=== PATIENT | male | born 1975 | race Caucasian/White ===

== ENCOUNTER → 2017-07-21 07:46 | Outpatient (CLI) | payer OTHER, SELFPAY ==
--- NOTE | 2017-07-21 07:46 | DT_ITS ---
This patient was seen during an EMR downtime July 17, 2017 - July 24, 2017. This patient may have a combination of paper and electronic documentation or all paper documentation. All documentation is viewable within the e-chart portion of [facility] for each patient visit.
[2017-07-21 14:55] LABS: Cholesterol 187 mg/dL (200); High Density Lipoprotein 7 mg/dL; Triglycerides 400 mg/dL; Very Low Density Lipoprotein 80 mg/dL (5-40)
== END ==
PROVIDERS: Family Provider Family Medicine; PCP Family Medicine; Visit Provider Family Medicine
DX: E78.5 Hyperlipidemia, unspecified (principal)
CPT/HCPCS: 36415; 80061

== ENCOUNTER → 2017-12-08 07:39 | Outpatient (CLI) | payer OTHER, SELFPAY ==
[2017-12-08 10:32] LABS: Absolute Neutrophil Count 2.7 X10^3/uL (2.0-7.7); Basophil# 0.03 X10^3/uL; Basophil% 0.6 % (0-1); Eosinophil# 0.09 X10^3/uL; Eosinophils% 1.7 % (0-5); Hematocrit 47.8 % (40-54); Hemoglobin 16.4 g/dl (13.0-16.5); Lymphocyte % 38.6 % (19-41); Mean Corp Hgb Conc 34.3 g/gl (32-36); Mean Corpuscular Volume 87.5 fL (80-94); Mean Platelet Vol. 10.9 fl (6.2-12.0); Monocyte# 0.35 X10^3/uL; Monocyte% 6.8 % (0-10); Neutrophil % 52.1 % (47-70); Platelet Count 321 K/mm3 (150-450); RBC Distribution Width CV 14.8 % (11.6-14.6); RBC Distribution Width SD 47.1 fl (35.1-43.9); Red Blood Count 5.46 M/mm3 (4.6-6.2); White Blood Count 5.2 K/mm3 (4.4-11.0)
[2017-12-08 10:35] LABS: POSITIVE COUNT NO; POSITIVE DIFFERENTIAL NO; POSITIVE MORPHOLOGY NO
[2017-12-08 10:51] LABS: ALB/GLOB Ratio 0.9 RATIO (0.9-2.4); AST(SGOT) 43 U/L (15-37); Alanine Aminotransfer ALT/SGPT 95 U/L (16-61); Albumin, Serum 3.6 g/dL (3.2-5.0); Alkaline Phosphatase 58 U/L (45-117); Anion Gap 6 (5-15); BUN 12 mg/dL (7-18); BUN/Creat Ratio 9.9 RATIO (10-20); Calcium,Total 8.6 mg/dL (8.5-10.1); Chloride 102 mmol/L (98-107); Cholesterol 170 mg/dL (200); Creatinine, Serum 1.21 mg/dL (0.70-1.30); EST Glomerular Filtration Rate 69 mL/min (>60); Est Glom Filt Rate - Afr Amer 84 mL/min (>60); Globulin 3.8 g/dL (2.2-4.2); Glucose 83 mg/dL (74-106); High Density Lipoprotein 6 mg/dL; Potassium 4.3 mmol/L (3.5-5.1); Protein, Total 7.4 g/dL (6.4-8.2); Sodium Level 139 mmol/L (136-145); Triglycerides 237 mg/dL; Very Low Density Lipoprotein 47 mg/dL (5-40)
[2017-12-08 10:55] LABS: Microalbumin,Random Urine 19.2 mg/L (NO RANGE EST.); Microalbumin:Creatinine Ratio 6.4 mg/g CRE (<30 mg/g CRE)
== END ==
PROVIDERS: Family Provider Family Medicine; PCP Family Medicine; Referring Provider Family Medicine; Visit Provider Family Medicine
DX: I10 Essential (primary) hypertension (principal); G47.33 Obstructive sleep apnea (adult) (pediatric); D84.1 Defects in the complement system; E78.5 Hyperlipidemia, unspecified; E66.9 Obesity, unspecified
CPT/HCPCS: 36415; 80053; 80061; 82043; 82570; 85025

== ENCOUNTER → 2018-03-19 07:39 | Outpatient (CLI) | payer OTHER, SELFPAY ==
[2018-03-23 16:50] LABS: C1 EST Inhibitor, Functional 56 (.); C1 Esterase Inhibitor, Quant 7 mg/dL (21-39)
== END ==
PROVIDERS: Family Provider Family Medicine; PCP Family Medicine; Referring Provider Family Medicine; Visit Provider Family Medicine
DX: D84.1 Defects in the complement system (principal)
CPT/HCPCS: 36415; 86160; 86161

== ENCOUNTER → 2018-05-14 07:11 | Outpatient (CLI) | payer OTHER, SELFPAY ==
[2018-05-14 10:01] LABS: Absolute Lymphocyte Count 2.63 X10^3/ul (0.83-4.51); Absolute Neutrophil Count 4.5 X10^3/uL (2.0-7.7); Basophil# 0.04 X10^3/uL; Basophil% 0.5 % (0-1); Eosinophil# 0.14 X10^3/uL; Eosinophils% 1.8 % (0-5); Hematocrit 46.7 % (40-54); Hemoglobin 15.5 g/dl (13.0-16.5); Lymphocyte # 2.63 X10^3/ul (4.0); Lymphocyte % 33.2 % (19-41); Mean Corp Hgb Conc 33.2 g/gl (32-36); Mean Corpuscular Hgb 29.8 pg (27.0-32.0); Mean Corpuscular Volume 89.8 fL (80-94); Mean Platelet Vol. 10.4 fl (6.2-12.0); Monocyte# 0.62 X10^3/uL; Monocyte% 7.8 % (0-10); Neutrophil # 4.49 X10^3/uL (2.7-7.7); Neutrophil % 56.6 % (47-70); Platelet Count 289 K/mm3 (150-450); RBC Distribution Width SD 46.1 fl (35.1-43.9); White Blood Count 7.9 K/mm3 (4.4-11.0)
[2018-05-14 10:04] LABS: POSITIVE COUNT NO; POSITIVE DIFFERENTIAL NO; POSITIVE MORPHOLOGY NO
[2018-05-14 10:30] LABS: AST(SGOT) 21 U/L (15-37); Alanine Aminotransfer ALT/SGPT 40 U/L (16-61); Albumin, Serum 3.5 g/dL (3.2-5.0); Alkaline Phosphatase 69 U/L (45-117); Anion Gap 7 (5-15); BUN 11 mg/dL (7-18); BUN/Creat Ratio 10.7 RATIO (10-20); Calcium,Total 8.5 mg/dL (8.5-10.1); Chloride 107 mmol/L (98-107); Cholesterol 130 mg/dL (200); Creatinine, Serum 1.03 mg/dL (0.70-1.30); EST Glomerular Filtration Rate 83 mL/min (>60); Est Glom Filt Rate - Afr Amer 101 mL/min (>60); Globulin 3.4 g/dL (2.2-4.2); Glucose 92 mg/dL (74-106); High Density Lipoprotein 7 mg/dL; Protein, Total 6.9 g/dL (6.4-8.2); Sodium Level 142 mmol/L (136-145); Triglycerides 364 mg/dL; Very Low Density Lipoprotein 73 mg/dL (5-40)
[2018-05-18 13:49] LABS: Testosterone, Free 22.99 ng/dL (5.00-21.00)
[2018-05-18 14:54] LABS: Testosterone, % Free 6.18 % (1.50-4.20); Testosterone, Total 372 ng/dL (264-916)
== END ==
PROVIDERS: Family Provider Family Medicine; PCP Family Medicine; Referring Provider Family Medicine; Visit Provider Family Medicine
DX: I10 Essential (primary) hypertension (principal); E78.5 Hyperlipidemia, unspecified; N52.9 Male erectile dysfunction, unspecified; Z51.81 Encounter for therapeutic drug level monitoring
CPT/HCPCS: 36415; 80053; 80061; 84402; 84403; 85025

== ENCOUNTER → 2020-07-09 07:08 | Outpatient (CLI) | payer OTHER, SELFPAY ==
[2020-07-09 10:08] LABS: Absolute Lymphocyte Count 1.88 X10^3/uL (0.83-4.51); Basophil# 0.05 X10^3/uL; Basophil% 0.9 % (0-1); Eosinophil# 0.09 X10^3/uL; Eosinophils% 1.7 % (0-5); Hematocrit 47.4 % (40-54); Hemoglobin 15.4 g/dL (13.0-16.5); Lymphocyte # 1.88 X10^3/ul (0.83-4.51); Lymphocyte % 34.8 % (19-41); Mean Corp Hgb Conc 32.5 g/dL (32-36); Mean Corpuscular Hgb 28.9 pg (27.0-32.0); Mean Corpuscular Volume 89.1 fL (80-94); Mean Platelet Vol. 10.3 fl (6.2-12.0); Monocyte# 0.42 X10^3/uL; Monocyte% 7.8 % (0-10); NRBC Flagged by Analyzer 0 % (0-5); Neutrophil # 2.95 X10^3/uL (2.7-7.7); Neutrophil % 54.4 % (47-70); Platelet Count 397 K/mm3 (150-450); RBC Distribution Width CV 15.5 % (11.6-14.6); RBC Distribution Width SD 50.6 fl (35.1-43.9); Red Blood Count 5.32 M/mm3 (4.6-6.2); White Blood Count 5.4 K/mm3 (4.4-11.0)
[2020-07-09 10:48] LABS: ALB/GLOB Ratio 0.9 RATIO (0.9-2.4); AST(SGOT) 25 U/L (15-37); Alanine Aminotransfer ALT/SGPT 53 U/L (16-61); Albumin, Serum 3.3 g/dL (3.2-5.0); Alkaline Phosphatase 59 U/L (45-117); Anion Gap 7 (5-15); BUN 14 mg/dL (7-18); BUN/Creat Ratio 12.7 RATIO (10-20); Calcium,Total 8.9 mg/dL (8.5-10.1); Chloride 104 mmol/L (98-107); Cholesterol 149 mg/dL (200); EST Glomerular Filtration Rate 77 mL/min (>60); Est Glom Filt Rate - Afr Amer 93 mL/min (>60); Globulin 3.7 g/dL (2.2-4.2); Glucose 93 mg/dL (74-106); High Density Lipoprotein 8 mg/dL; Potassium 4.4 mmol/L (3.5-5.1); Sodium Level 138 mmol/L (136-145); Triglycerides 263 mg/dL; Very Low Density Lipoprotein 53 mg/dL (5-40)
== END ==
PROVIDERS: PCP Family Medicine; Referring Provider Family Medicine; Visit Provider Family Medicine
DX: Z00.00 Encounter for general adult medical examination without abnormal findings (principal)
CPT/HCPCS: 36415; 80053; 80061; 85025

== ENCOUNTER → 2021-12-17 | Outpatient (CLI) | payer OTHER, SELFPAY ==
[2021-12-17 17:52] LABS: Absolute Neutrophil Count 3.2 X10^3/uL (2.0-7.7); Basophil# 0.06 X10^3/uL; Eosinophil# 0.11 X10^3/uL; Eosinophils% 1.8 % (0-5); Hematocrit 50.2 % (40-54); Hemoglobin 16.9 g/dL (13.0-16.5); Lymphocyte % 37.2 % (19-41); Mean Corp Hgb Conc 33.7 g/dL (32-36); Mean Corpuscular Hgb 30.4 pg (27.0-32.0); Mean Corpuscular Volume 90.3 fL (80-94); Mean Platelet Vol. 9.9 fl (6.2-12.0); Monocyte# 0.53 X10^3/uL; Monocyte% 8.6 % (0-10); NRBC Flagged by Analyzer 0 % (0-5); Neutrophil # 3.17 X10^3/uL (2.7-7.7); Neutrophil % 51.1 % (47-70); Platelet Count 367 K/mm3 (150-450); RBC Distribution Width CV 14.5 % (11.6-14.6); RBC Distribution Width SD 47.7 fl (35.1-43.9); Red Blood Count 5.56 M/mm3 (4.6-6.2); White Blood Count 6.2 K/mm3 (4.4-11.0)
[2021-12-17 18:52] LABS: BUN 9 mg/dL (7-18); Creatinine, Serum 1.13 mg/dL (0.70-1.30); EST Glomerular Filtration Rate 74 mL/min (>60); Est Glom Filt Rate - Afr Amer 89 mL/min (>60); Glucose 89 mg/dL (74-106); Protein, Total 7.2 g/dL (6.4-8.2)
[2021-12-17 18:53] LABS: AST(SGOT) 38 U/L (15-37); Alanine Aminotransfer ALT/SGPT 89 U/L (16-61); Albumin, Serum 3.6 g/dL (3.2-5.0); Alkaline Phosphatase 62 U/L (45-117); Anion Gap 8 (5-15); Calcium,Total 9.3 mg/dL (8.5-10.1); Chloride 100 mmol/L (98-107); Cholesterol 151 mg/dL (200); Globulin 3.6 g/dL (2.2-4.2); High Density Lipoprotein 5 mg/dL; Potassium 4.2 mmol/L (3.5-5.1); Sodium Level 136 mmol/L (136-145); Triglycerides 485 mg/dL
== END | disposition home or self-care (01) ==
LOC: BFHLAB 14:47
PROVIDERS: PCP Family Medicine; Visit Provider Family Medicine
DX: Z00.00 Encounter for general adult medical examination without abnormal findings (principal)
CPT/HCPCS: 36415; 80053; 80061; 85025

== ENCOUNTER 2022-02-22 08:50 | Emergency (ER) | payer OTHER, SELFPAY ==
[2022-02-22 08:52] VITALS: BP 192/100; PULSE 74; RESP 11; TEMP 36.2; O2SAT 100
--- NOTE | 2022-02-22 09:18 | RAD_ITS ---
STUDY: X-RAY CHEST REASON FOR EXAM: Male, 46 years old. Sternal chest pain. TECHNIQUE: PA and lateral views of the chest. COMPARISON: Comparison is made with prior study dated 08/27/2013. FINDINGS: EKG electrodes are seen. Hyperinflation. The lungs are clear. There is no demonstrated pleural abnormality. Normal size heart. Normal mediastinum and cesar. Normal visualized pulmonary arteries. Normal visualized aortic arch and descending thoracic aorta. Normal visualized thoracic spine. Deformity of the mid right clavicle suggestive of a healed fracture. There is no demonstrated abnormality of the visualized soft tissue structures of the upper abdomen. RAD/Chest PA and Lateral IMPRESSION: Hyperinflation. The lungs are clear. Electronically Signed: Ajay Patterson MD at 10:19 EST ,
--- NOTE | 2022-02-22 09:20 | ED.VIS.CHEST ---
HPI History of Present Illness Chief Complaint: Chest Pain Informant: patient Narrative Narrative: Patient is a 46-year-old male with history of GERD secondary to hiatal hernia, hyperlipidemia, hypertension and hereditary angioedema presenting with chest discomfort. Patient states for the past 4 to 5 days he has had tightness and discomfort in the upper part of his chest. He states it has been constant but fluctuates in intensity. It moves around from the center of his chest to the left and the right. Does not feel short of breath. Has a slight cough that is been productive of phlegm. Denies any worsening of the pain with deep inspiration. Denies any fever or chills. Denies any URI symptoms. Notes he has been clearing his throat more often but has been going on for a longer amount of time. Denies any swelling of his legs. Denies a history of DVT or PE. Notes he did take his blood pressure medication this morning (hydrochlorothiazide he believes). Last episode of hereditary angioedema was over 10 years ago and he is well maintained on danazol. [facility] Medical History Hypercholesteremia Hypertension Home Medications danazol 200 mg capsule 200 mg PO BID 08/27/13 [History Last Taken 06/17/16 06:00] multivitamin with folic acid 400 mcg tablet (Thera) 1 tab PO DAILY 09/23/13 [History Last Taken Unknown] omega-3 fatty acids-fish oil 340 mg-1,000 mg capsule (Fish Oil) 1 ea PO DAILY 09/23/13 [History Last Taken Unknown] atorvastatin 20 mg tablet (Lipitor) 20 mg PO DAILY 06/13/16 [History Last Taken Unknown] omeprazole magnesium 20 mg tablet,delayed release (Prilosec OTC) 20 mg PO QHS 06/13/16 [History Last Taken Unknown] albuterol sulfate 90 mcg/actuation aerosol inhaler (Ventolin HFA) 1 - 2 puff inhalation Q4H PRN PRN Wheezing or SOB #1 inh 02/22/22 [Rx Last Taken Unknown] prednisone 20 mg tablet 40 mg PO DAILY #10 tabs 02/22/22 [Rx Last Taken Unknown] Allergy/AdvReac Type Severity Reaction Status Date / Time No Known Allergies Allergy Verified 02/22/22 08:52 Family History no significant family his Surgical History no surgical history Social History Smoking Status: Never smoker ROS ROS ED Constitutional Constitutional ED: Denies chills or fever(s) ENT ENT ED: Denies ear pain, rhinorrhea or sore throat Cardiovascular Cardiovascular: Reports as per HPI and chest pain; Denies palpitations Respiratory/Chest Respiratory/Chest: Denies cough, dyspnea or dyspnea on exertion Gastrointestinal Gastrointestinal: Denies abdominal pain, nausea or vomiting Musculoskeletal Musculoskeletal: Denies arthralgias or myalgias Integumentary Denies rash Neurologic Neurologic: Denies headache(s) or weakness Hematologic/Lymphatic Hematologic/Lymphatic: Denies easy bleeding or easy bruising EXAM Physical Exam Const Vital Signs: 02/22/22 08:52 Temperature 97.2 F L Temperature Source Temporal Pulse Rate 74 Respiratory Rate 11 L Blood Pressure 192/100 H Blood Pressure Mean 130 Pulse Ox 100 Oxygen Delivery Method Room Air Positive well nourished and well developed General Appearance ED: well developed and NAD HEENT Reports TM's clear and moist mucous membranes HEENT Narrative: Normal oropharynx, no edema appreciated. Uvula is midline. normocephalic and atraumatic Tympanic Membrane ED: Yes TM's clear Eyes PERRL and EOMs intact bilaterally Neck supple and no JVD Chest Wall inspection of chest normal and palpation of chest normal Resp normal respiratory effort and clear to auscultation bilaterally Cardio regular rate and regular rhythm Peripheral Pulses: radial pulses present GI normal to inspection, nondistended, normoactive bowel sounds Extremity normal to inspection General Extremety ED: Negative for edema General Extremity: Negative for edema Neuro oriented x3 Sensorium / Orientation: awake Motor Exam: Negative for general weakness Psych mental status grossly normal Skin no rashes or lesions noted Heart Score History: Slightly/Non-Suspicious ECG: Normal Age: >45 - <65 years Risk Factors: 1 or 2 Risk Factors Troponin: </= Normal Limit Score: 2 MDM MDM MDM Narrative Medical decision making narrative: Patient evaluated for vague sensation of discomfort in his chest. He appears nontoxic and in no acute distress. He has had a mild cough with some slight phlegm production. Vital signs are significant for hypertension. Patient does have a history of hypertension and is on hydrochlorothiazide for this. He did take it this morning. He is given aspirin in the ER. Physical exam is large unremarkable including no wheezing, rales or diminished breath sounds. Does not have an obvious viral syndrome on exam. This is been going on for almost 5 days and they do not sound cardiac. He does not have have any ischemic EKG changes and within normal high since he troponin I do not think further cardiac evaluation to look for signs of ACS is indicated. He is low risk for PE and D-dimer is normal at 0.28. I do not think a CT is indicated. Chest x-ray interpreted by myself as well as radiology does not show any acute infiltrate but does show some hyperinflation. I do not appreciate any wheezing I will place the patient on prednisone burst as well as give him a rescue inhaler. Encouraged follow-up with his primary care doctor. Patient's blood pressure improved while in the ER and at time of disposition is now 150/100 systolic. Patient states this is about where his blood pressure runs. He is encouraged to continue taking his blood pressure medicine and follow-up with his primary care doctor for further blood pressure checks. I do not think new blood pressure medication is indicated at this time. He is agreeable with this. He does not know of any underlying history of any type of reactive or obstructive airway disease including asthma or COPD. I do not see any signs of pneumonia and he does not have a fever or leukocytosis I do not think antibiotics indicated. Patient given return precautions. Discharged home in stable condition. Lab Data Attestation: I reviewed the patient's lab results. Labs: Laboratory Results - last 24 hr 02/22/22 02/22/22 02/22/22 09:00 09:00 09:00 WBC 6.1 RBC 5.77 Hgb 17.3 H Hct 50.8 MCV 88.0 MCH 30.0 MCHC 34.1 RDW Std Deviation 44.7 H RDW Coeff of Carole 13.9 Plt Count 401 MPV 10.2 Immature Gran % (Auto) 0.300 Neut % (Auto) 54.0 Lymph % (Auto) 37.0 [place] % (Auto) 7.0 Eos % (Auto) 1.0 Baso % (Auto) 0.7 Absolute Neuts (auto) 3.3 Absolute Lymphs (auto) 2.26 Nucleated RBC % 0 D-Dimer Quant (PE/DVT) 0.28 Sodium 137 Potassium 3.6 Chloride 98 Carbon Dioxide 30.0 Anion Gap 9 BUN 10 Creatinine 1.26 Estim Creat Clear Calc 6.15 Est GFR (MDRD) Af Amer 79 Est GFR (MDRD) Non-Af 65 BUN/Creatinine Ratio 7.9 L Glucose 132 H Calcium 9.7 Troponin I High Sens 6 Radiography Diagnostic Testing: Clinical Impression(s) from Imaging Studies Chest X-Ray 02/22/22 09:18 IMPRESSION: Hyperinflation. The lungs are clear. Electronically Signed: Ajay Patterson MD at 10:19 EST , Rhythm Strip Rhythm Strip: Sinus Rhythm Rate: 71 Ectopy: None EKG Initial EKG: Attestation: I personally reviewed and interpreted this EKG as follows: Interpretation: Sinus Rhythm Comments: Normal sinus rhythm at a rate of 71 bpm Normal axis Normal intervals Normal ST segments No prior EKG available for comparison at this time Discharge Plan Triage Chief Complaint: Chest Pain ED Provider: Winsome Brian Dx/Rx/DC Orders Clinical Impression: Sensation of chest tightness, Hyperinflation of lungs, Hypertension Instructions: ED Chest Pain, Noncardiac Prescriptions: New prednisone 20 mg tablet 40 mg PO DAILY Qty: 10 0RF albuterol sulfate [Ventolin HFA] 90 mcg/actuation HFA aerosol inhaler 1 - 2 puff inhalation Q4H PRN PRN (Reason: Wheezing or SOB) Qty: 1 0RF No Action danazol 200 MG capsule 200 mg PO BID Label Comments: TAKE ONE CAPSULE TWICE A DAY omega-3 fatty acids-fish oil [Fish Oil] 1 EACH capsule 1 ea PO DAILY multivitamin with folic acid [Thera] 1 TABLET tablet 1 tab PO DAILY atorvastatin [Lipitor] 20 MG tablet 20 mg PO DAILY omeprazole magnesium [Prilosec OTC] 20 MG tablet,delayed release (DR/EC) 20 mg PO QHS Primary Care Provider: Ortiz Merino Referrals: Ortiz Mernio DO [Primary Care Provider] - Activity Restrictions/Additional Instructions: The exact cause of your chest discomfort is not clear however your lungs do show some hyperinflation. We will put you on some steroids as well as an inhaler. Please follow-up with your primary care doctor. Check your blood pressure once or twice a day at home and follow-up with your primary care doctor for blood pressure check to see if you need any medication adjustments. Return with worsening symptoms. Disposition Disposition: Home, Self Care
[2022-02-22 09:29] LABS: Absolute Lymphocyte Count 2.26 X10^3/uL (0.83-4.51); Absolute Neutrophil Count 3.3 X10^3/uL (2.0-7.7); Basophil# 0.04 X10^3/uL; Basophil% 0.7 % (0-1); Eosinophil# 0.06 X10^3/uL; Hematocrit 50.8 % (40-54); Hemoglobin 17.3 g/dL (13.0-16.5); Lymphocyte # 2.26 X10^3/ul (0.83-4.51); Mean Corp Hgb Conc 34.1 g/dL (32-36); Mean Platelet Vol. 10.2 fl (6.2-12.0); Monocyte# 0.43 X10^3/uL; NRBC Flagged by Analyzer 0 % (0-5); Platelet Count 401 K/mm3 (150-450); RBC Distribution Width CV 13.9 % (11.6-14.6); RBC Distribution Width SD 44.7 fl (35.1-43.9); Red Blood Count 5.77 M/mm3 (4.6-6.2); White Blood Count 6.1 K/mm3 (4.4-11.0)
[2022-02-22 09:40] LABS: D-Dimer Quantitative (DVT/PE) 0.28 FEU/ug/m (0.27-0.49)
[2022-02-22] MEDS: Aspirin 325 MG Tablet PO (09:43)
[2022-02-22 09:46] LABS: Anion Gap 9 (5-15); BUN 10 mg/dL (7-18); BUN/Creat Ratio 7.9 RATIO (10-20); Calcium,Total 9.7 mg/dL (8.5-10.1); Chloride 98 mmol/L (98-107); Creatinine, Serum 1.26 mg/dL (0.70-1.30); EST Glomerular Filtration Rate 65 mL/min (>60); Est Glom Filt Rate - Afr Amer 79 mL/min (>60); Estimated Creatinine Clearance 6.15 ml/min; Glucose 132 mg/dL (74-106); Potassium 3.6 mmol/L (3.5-5.1); Sodium Level 137 mmol/L (136-145); Troponin-I HS 6 pg/mL (3.0-78.0)
[2022-02-22 11:31] VITALS: BP 151/93; PULSE 78; RESP 16; O2SAT 97
== END 2022-02-22 11:32 | disposition home or self-care (01) ==
PROVIDERS: Emergency Provider Emergency Medicine; PCP Family Medicine; Visit Provider Emergency Medicine
DX: R07.9 Chest pain, unspecified (principal); I10 Essential (primary) hypertension
CPT/HCPCS: 71046; 80048; 84484; 85025; 85379; 93005; 99283

== ENCOUNTER → 2022-03-07 | Outpatient (CLI) | payer OTHER, SELFPAY ==
--- NOTE | 2022-03-09 11:15 | PFT ---
INTRODUCTION: The patient is a 46-year-old male that presents for pulmonary function studies secondary to a diagnosis of dyspnea. Respiratory therapy reported good patient effort. Bronchodilators were used during testing. INTERPRETATION: Forced expiration spirometry demonstrates no evidence of a large airways obstructive ventilatory defect. There was no significant response to aerosolized bronchodilators. Spirograms are of good quality and plateau normally. The respiratory flow volume loop was normal. Body plethysmography was performed and revealed evidence of hyperinflation. Diffusing capacity by single breath CO was within normal limits. IMPRESSION: Normal spirometry without significant bronchodilator response. There was a mild degree of hyperinflation noted on lung volumes.
== END | disposition home or self-care (01) ==
PROVIDERS: PCP Family Medicine; Referring Provider Family Medicine; Visit Provider Family Medicine
DX: R06.00 Dyspnea, unspecified (principal)
CPT/HCPCS: 94060; 94726; 94729

== ENCOUNTER → 2022-04-18 | Outpatient (CLI) | payer OTHER, SELFPAY ==
[2022-04-18 13:47] LABS: AST(SGOT) 31 U/L (15-37); Alanine Aminotransfer ALT/SGPT 53 U/L (16-61); Albumin, Serum 3.4 g/dL (3.2-5.0); Alkaline Phosphatase 50 U/L (45-117); Cholesterol 150 mg/dL (200); Globulin 3.9 g/dL (2.2-4.2); High Density Lipoprotein 6 mg/dL; Protein, Total 7.3 g/dL (6.4-8.2); Triglycerides 501 mg/dL
[2022-04-19 15:25] LABS: LDL, Direct 120295 83 mg/dL (0-99)
== END | disposition home or self-care (01) ==
LOC: BFHLAB 10:44
PROVIDERS: PCP Family Medicine; Visit Provider Family Medicine
DX: Z00.00 Encounter for general adult medical examination without abnormal findings (principal); E78.5 Hyperlipidemia, unspecified
CPT/HCPCS: 36415; 80061; 80076; 83721

== ENCOUNTER → 2023-04-20 | Outpatient (CLI) | payer OTHER, SELFPAY ==
[2023-04-20 12:03] LABS: Absolute Lymphocyte Count 2.15 X10^3/uL (0.83-4.51); Absolute Neutrophil Count 3.3 X10^3/uL (2.0-7.7); Basophil# 0.05 X10^3/uL; Basophil% 0.8 % (0-1); Eosinophil# 0.08 X10^3/uL; Eosinophils% 1.3 % (0-5); Hematocrit 50.4 % (40-54); Hemoglobin 16.7 g/dL (13.0-16.5); Lymphocyte # 2.15 X10^3/ul (0.83-4.51); Mean Corp Hgb Conc 33.1 g/dL (32-36); Mean Corpuscular Hgb 30.2 pg (27.0-32.0); Mean Corpuscular Volume 91.1 fL (80-94); Mean Platelet Vol. 10.6 fl (6.2-12.0); Monocyte% 6.7 % (0-10); NRBC Flagged by Analyzer 0 % (0-5); Neutrophil # 3.27 X10^3/uL (2.7-7.7); Neutrophil % 54.7 % (47-70); Platelet Count 367 K/mm3 (150-450); RBC Distribution Width CV 14.6 % (11.6-14.6); RBC Distribution Width SD 49.1 fl (35.1-43.9); Red Blood Count 5.53 M/mm3 (4.6-6.2)
[2023-04-20 13:17] LABS: AST(SGOT) 50 U/L (15-37); Alanine Aminotransfer ALT/SGPT 92 U/L (16-61); Albumin, Serum 3.6 g/dL (3.2-5.0); Alkaline Phosphatase 42 U/L (45-117); Anion Gap 11 (5-15); BUN 11 mg/dL (7-18); Calcium,Total 10.4 mg/dL (8.5-10.1); Chloride 98 mmol/L (98-107); Cholesterol 173 mg/dL (200); EST Glomerular Filtration Rate 76 mL/min (>60); Est Glom Filt Rate - Afr Amer 92 mL/min (>60); Globulin 3.7 g/dL (2.2-4.2); Glucose 109 mg/dL (74-106); High Density Lipoprotein 8 mg/dL; Protein, Total 7.3 g/dL (6.4-8.2); Sodium Level 136 mmol/L (136-145); Triglycerides 578 mg/dL
[2023-04-20 14:11] LABS: Hemoglobin A1c 5.4 % (3.8-5.6)
== END | disposition home or self-care (01) ==
LOC: BFHLAB 09:00
PROVIDERS: PCP Family Medicine; Referring Provider Family Medicine; Visit Provider Family Medicine
DX: Z00.00 Encounter for general adult medical examination without abnormal findings (principal)
CPT/HCPCS: 36415; 80053; 80061; 83036; 85025

== ENCOUNTER 2024-05-24 06:29 | Day surgery (SDC) | payer OTHER, SELFPAY ==
[2024-05-24] VITALS (8 sets, daily range): BP systolic 88–148; BP diastolic 68–95; PULSE 61–72; RESP 12–18; TEMP 36.2–36.6; O2SAT 92–100; BMI 31.4
--- NOTE | 2024-05-24 06:49 | PCM.HP.BLA ---
History and Physical Date of Admission: 05/24/24 ADDENDUM by Navya Redding on 05/03/24 at 1345 Intake Allergies No Known Allergies Allergy (Verified 05/03/24 13:43) Assessment and Plan Assessment and Plan (1) Screen for colon cancer: Status: Acute (2) Umbilical hernia: Status: Acute Qualifiers: Obstruction and gangrene presence: without obstruction or gangrene Qualified Code(s): K42.9 - Umbilical hernia without obstruction or gangrene Orders: Orders Colonoscopy Today Dr. Nicolas Nielson MD Medications: Discontinued prednisone Discontinued Reason: Pt no longer taking 40 mg (2 x 20 mg) PO DAILY 10 tabs 0RF Navya Redding 05/03/24 1358 <Electronically signed by Nicolas Nielson MD> Date Nicolas Nielson MD cc: Dr. Ortiz Merino DO ~* Signed Intake Vital Signs 02/22/2307:52 05/03/2512:34 Height 5 ft 9 in Weight: 215 lb BP 142/98 H Blood Pressure Location Rt brachial Position Sitting Respiration 17 Pulse 61 Pulse Source Monitor Pulse Oximetry (%) 92 Oxygen Delivery Method room air Intake Visit Reasons: hernia/c-scope Allergies No Known Allergies Allergy (Verified 02/22/22 08:52) PFSH Medical History Hypercholesteremia Hypertension Family History no significant family his Social History Smoking Status: Never smoker HPI HPI HPI: Patient is a 48-year-old male here for umbilical hernia as well as for colonoscopy. He has an umbilical hernia that has been there for years. He reports is not bothering him unless something hits it. Other than that he reports no problems with the hernia. As far as colonoscopy he reports he has never had a screening colonoscopy. He reports no abdominal pain or blood in the stool and his only family history of colon cancer is a grandfather. ROS General General: No weight change, appetite, fatigue, colon cancer, breast cancer or weakness HEENT HEENT: No difficulty swallowing, eye injury, eye surgery, swollen glands or hoarseness Endo Endocrine: No thyroid disease, diabetes mellitus, thyroid cancer, Hair loss, heat intolerance or cold intolerance Skin Skin: No rash or changing moles Musc Musculoskeletal: No back problems, arthritis, rheumatoid arthritis, gout or joint pain Cardio Cardiovascular: Yes high blood pressure; No murmur, pacemaker, heart disease, atrial fibrillation, heart attack, heart stent, palpitations, shortness of breath with exertion or chest pain Psych Psychiatric: No depression, anxiety or hearing voices Resp Respiratory: No shortness of breath, Yes sleep apnea, No cough, No COPD, No asthma, No emphysema and No wheezing Gastro Gastrointestinal: No abdominal pain, No nausea or vomiting, No diarrhea, No constipation, No blood in stool, Yes acid reflux, No hemorrhoids, No ulcers, No gallbladder problem and No black,tarry stools Juan Antonio Hematologic: No blood thinners, No blood disorders, No bleeding, No anemia and No blood clots Neuro Neurologic: No system reviewed and no additional complaints, except as documented, No as per HPI, No abnormal gait, No abnormal hearing, No abnormal movements, No abnormal speech, No behavioral changes, No burning sensations, No confusion, No convulsions, No disequilibrium, No dizziness, No localized weakness, No frequent falls, No headache(s), No lack of coordination, No loss of vision, No memory loss, No numbness, No other visual disturbances, No radicular pain, No restless legs, No sensory deficit, No syncope, No tingling, No tremor(s), No weakness and No other Exam Const General: cooperative Orientation: alert and oriented x3 HENNE Head: normal to inspection Neck Neck: normal visual inspection and full ROM Chest Chest palpation & inspection: normal inspection of the chest Resp Effort & Inspection: normal respiratory effort Auscultation: clear to auscultation bilaterally Cardio Rate: regular rate Rhythm: regular rhythm GI Inspection: non-distended Palpation: soft and nontender Skin General: no rashes or lesions noted Neuro General: patient alert and patient oriented x3 Extrem General: full ROM Psych Appearance: grossly normal Mental Status: mental status grossly normal Assessment and Plan Assessment and Plan (1) Screen for colon cancer: Status: Acute Plan: Patient is due for screening colonoscopy. I explained endoscopy in detail to the patient. I explained the risks including but not limited to stroke or heart attack with anesthesia, perforation of the GI tract, bleeding, infection. I explained that any of these could necessitate further emergency surgery. The patient understands and all questions were answered sufficiently. The patient wishes to proceed with procedure. (2) Umbilical hernia: Status: Acute Qualifiers: Obstruction and gangrene presence: without obstruction or gangrene Qualified Code(s): K42.9 - Umbilical hernia without obstruction or gangrene Plan: Patient has a small umbilical hernia. He would like to wait on repair if it is not necessary. I explained the risks and benefits of conservative versus surgical management. Patient is comfortable leaving the hernia until it either grows larger or more symptomatic. Nicolas Nielson MD Pager: [facility] [address] [place] [address], [address] [place] [address] Office: I have examined the patient and the H&P has been reviewed. There are no clinical changes since date of exam.
--- NOTE | 2024-05-24 07:09 | PCM.PRE.AN2 ---
ASA Classification* ASA Classification ASA Classification: 2 Assessment & Plan Anesthesia* Anesthesia Assessment Anesthesia Assessment: Discussed sedation and/or anesthesia options, risks, benefits, and alternatives with patient/parents/legal guardian/POA. Questions invited. The patient/parents/legal guardian/POA seems to understand and agrees to proceed with anesthesia plan. Reviewed the physical assessment, medical history, allergy history and patient home medications list prior to surgery/procedure/anesthetic and documented any changes. Performed airway and anesthesia risk assessments. Anesthesia Type Anesthesia Type: MAC Anesthesia Focused Assessment* Temperature: 97.1 F Pulse Rate: 72 Blood Pressure: 148/95 Respiratory Rate: 16 Pulse Ox: 100 Airway Assessment Mouth opens: >3 cm Mallampati Score: II Focused Labs Anesthesia Preop lab: CBC WBC 6.0 K/mm3 (4.4-11.0) 04/20/23 09:01 04/20/23 RBC 5.53 M/mm3 (4.6-6.2) 04/20/23 09:01 04/20/23 Hgb 16.7 g/dL (13.0-16.5) H 04/20/23 09:01 04/20/23 Hct 50.4 % (40-54) 04/20/23 09:01 04/20/23 Plt Count 367 K/mm3 (150-450) 04/20/23 09:01 04/20/23 CHEMISTRY Potassium 4.0 mmol/L (3.5-5.1) 04/20/23 09:01 04/20/23 Sodium 136 mmol/L (136-145) 04/20/23 09:01 04/20/23 BUN 11 mg/dL (7-18) 04/20/23 09:01 04/20/23 Creatinine 1.10 mg/dL (0.70-1.30) 04/20/23 09:01 04/20/23 Glucose 109 mg/dL (74-106) H 04/20/23 09:01 04/20/23 TSH 3.19 uIU/mL (0.358-3.74) 03/11/16 07:36 03/11/16 COAG Pre-Assessment Diagnosis/Proposed Procedure Planned Operative Procedure(s): COLONOSCOPY Anesthesia History Anesthesia History - animal impersonator: Anesthesia History - animal impersonator Hx Hospitalization No 05/20/24 10:37 Any Problems With Anesthesia No 05/20/24 10:37 Cholinesterase deficiency No 05/20/24 10:37 You/Your Family Experience No 05/20/24 10:37 fever (hyperthermia) with Relationship Recent Exposure to Contagious No 05/24/24 06:52 Disease Does patient have nerve No 05/20/24 10:37 stimulator Patient instructed to have device shut off --Does patient have Pacemaker No 05/24/24 06:52 or ICD? When Was Last Pacemaker Check QUESTION #4 FULL TEXT: You/Your Family Experience fever (hyperthermia) with Anesthesia Last Oral Intake Last Oral intake: Last Oral Intake NPO since 05:30 05/24/24 06:52 Meds taken in AM with sips of Yes 05/24/24 06:52 water? Meds patient instructed to take am of surgery PONV PONV - animal impersonator: PONV - animal impersonator Female No 05/20/24 10:37 HX of Motion Sickness No 05/20/24 10:37 HX of N/V After Surgery No 05/20/24 10:37 Non-Smoker Yes 05/20/24 10:37 Duration of Surgery greater No 05/20/24 10:37 than 60 minutes Number of Risk Factors 1 05/20/24 10:37 PONV Score Low Risk 05/20/24 10:37 Height & Weight Height & Weight: Anesthesia: Height & Weight Height 5 ft 9 in 05/24/24 06:52 Weight: 96.5 kg 05/24/24 06:52 Body Mass Index (BMI) 31.4 05/24/24 06:52 Respiratory Assessment Respiratory Assessment - animal impersonator: Respiratory Tract Infection Hx - animal impersonator Hx Respiratory Tract Infection No 05/20/24 10:37 STOP Sleep Apnea STOP Sleep Apnea - animal impersonator: STOP Sleep Apnea - animal impersonator Hx Hypertension Yes: CONTROLLED ON MED 05/20/24 10:37 Hx Sleep Apnea Yes 05/20/24 10:37 CPAP No 05/20/24 10:37 BIPAP Yes 05/20/24 10:37 Do you snore loudly (louder than talking or can be heard Do you often feel tired/ fatigued/ sleepy during daytime? Has anyone observed you stop breathing during sleep? STOP Results Positive 05/20/24 10:37 QUESTION #5 FULL TEXT : Do you snore loudly (louder than talking or can be heard through closed doors)? 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 Specify any problems Hx of Preganancy in last 3 N/A 05/20/24 10:37 Months Nurse Filling Out Transfusion VCHRISTIN 05/20/24 10:37 & Questions: Date: 05/20/24 05/20/24 10:37 Time: 10:38 05/20/24 10:37 Patient unable to answer at this time (ie. confused, unrespo /Reproduction History /Reproductive History - animal impersonator: /Reproductive Hx- animal impersonator Hx Now Gestational Age (in weeks): EDC: Hx Hx Para Hx Section SAB PFSH Medical History Alcohol use History of hiatal hernia Gastric reflux Non-smoker BiPAP (biphasic positive airway pressure) dependence Sleep apnea Hx of angioedema History of stress test Hypercholesteremia Hypertension Home Medications ?Medication ?Instructions ?Recorded ?Last Taken ?Type danazol 200 mg capsule 200 mg PO BID 08/27/13 05/24/24 History multivitamin with folic acid 400 1 tab PO DAILY 09/23/13 Unknown History mcg tablet (Thera) omega-3 fatty acids-fish oil 340 1 ea PO BID 09/23/13 Unknown History mg-1,000 mg capsule (Fish Oil) atorvastatin 20 mg tablet (Lipitor) 20 mg PO DAILY 06/13/16 Unknown History omeprazole magnesium 20 mg 20 mg PO QHS 06/13/16 Unknown History tablet,delayed release (Prilosec OTC) bupropion HCl 300 mg 24 hr tablet, 300 mg PO DAILY 05/20/24 Unknown History extended release hydrochlorothiazide 25 mg tablet 25 mg PO DAILY 05/20/24 Unknown History metoprolol succinate 50 mg 50 mg PO DAILY 05/20/24 05/24/24 History tablet,extended release 24 hr Allergy/AdvReac Type Severity Reaction Status Date / Time No Known Allergies Allergy Verified 05/24/24 06:46 Surgical History Hx of surgical procedure Hx of elbow surgery Hx of knee surgery History of esophagogastroduodenoscopy (EGD) Social History Smoking Status: Never smoker Review of Systems (Anesthesia) ROS Narrative System reviewed and no additional complaints, except as documented.
--- NOTE | 2024-05-24 07:53 | OP.CCLET_ITS ---
05/24/2024 Ortiz Merino [address] [place] [address] Re : Colonoscopy procedure for Kraig Bassett Dear Dr. Merino This procedure was performed on Friday, May 24, 2024. My impressions and recommendations are as follows: Impressions : - The entire examined colon is normal on direct and retroflexion views. - No specimens collected. Recommendations : - Discharge patient to home. - Resume previous diet. - Continue present medications. - Repeat colonoscopy in 10 years for screening purposes. My findings are described in the full procedure note, which is enclosed. If I can be of further assistance, please feel free to contact me at Doctor phone number(s): , Work: . Sincerely, Nicolas Nielson MD 05/24/2024 7:52:50 AM This report has been signed electronically.
--- NOTE | 2024-05-24 07:53 | OP.COLON_ITS ---
Patient Name: Kraig Bassett Procedure Date: 05/24/2024 7:31 AM Date of : 1975 Age: 49 Procedure: Colonoscopy Indications: Screening for colorectal malignant neoplasm Providers: Nicolas Nielson MD Medicines: Propofol per Anesthesia Patient Profile: This is a 49 year old male. Refer to note in patient chart for documentation of history and physical. Last Colonoscopy: none. The patient's first colonoscopy is today. Complications: No immediate complications. Procedure: Pre-Anesthesia Assessment: - Prior to the procedure, a History and Physical was performed, and patient medications and allergies were reviewed. The patient's tolerance of previous anesthesia was also reviewed. The risks and benefits of the procedure and the sedation options and risks were discussed with the patient. All questions were answered, and informed consent was obtained. Prior Anticoagulants: The patient has taken no anticoagulant or antiplatelet agents. After reviewing the risks and benefits, the patient was deemed in satisfactory condition to undergo the procedure. After I obtained informed consent, the scope was passed under direct vision. Throughout the procedure, the patient's blood pressure, pulse, and oxygen saturations were monitored continuously. The Colonoscope was introduced through the anus and advanced to the cecum, identified by appendiceal orifice and ileocecal valve. The colonoscopy was performed without difficulty. The patient tolerated the procedure well. The quality of the bowel preparation was good. The ileocecal valve, appendiceal orifice, and rectum were photographed. Scope In: 7:40:04 AM Scope Withdrawal Time 0 hours 6 minutes 15 seconds Scope Out: 7:50:01 AM Total Procedure Duration Time 0 hours 9 minutes 57 seconds Findings: The entire examined colon appeared normal on direct and retroflexion views. Impression: - The entire examined colon is normal on direct and retroflexion views. - No specimens collected. Recommendation: - Discharge patient to home. - Resume previous diet. - Continue present medications. - Repeat colonoscopy in 10 years for screening purposes. Procedure Code(s): --- Professional --- 74662, Colonoscopy, flexible; diagnostic, including collection of specimen(s) by brushing or washing, when performed (separate procedure) Diagnosis Code(s): --- Professional --- Z12.11, Encounter for screening for malignant neoplasm of colon CPT copyright 2021 [employer]. All rights reserved. The codes documented in this report are preliminary and upon information security specialist review may be revised to meet current compliance requirements. Nicolas Nielson MD 05/24/2024 7:52:50 AM This report has been signed electronically. Number of Addenda: 0 Note Initiated On: 05/24/2024 7:31 AM
--- NOTE | 2024-05-24 08:02 | PCM.POST.ANE ---
Anesthesia: Postop Eval I Current Vital Signs Temperature: 97.8 F Pulse Rate: 72 Blood Pressure: 112/88 Respiratory Rate: 16 Pulse Ox: 94 Oxygen Delivery Method: Room Air Assessment Airway patent: Yes Spontaneous unlabored respirations: Yes Mental status: Awake and Calm nausea: No Vomiting: No Anesthesia Complication: No Fluid Hydration Crystalloid volume administer (ml): 40 Total IV fluid infused: 40 Progress Note Anesthesia document: Postop Eval 1 completed: Yes
--- NOTE | 2024-05-24 08:22 | PCM.POSTANE2 ---
Anesthesia Postop Eval I Sum Postop Eval Completion status Anesthesia document: Postop Eval 1 completed: Yes Anesthesia Postop Eval I Summary Anesthesia Postop Eval I Summary: Anesthesia Postop Eval I: Assessment Summary Airway patent Yes 05/24/24 08:03 [email or web address] Spontaneous unlabored Yes 05/24/24 08:03 [email or web address] respirations Mental status Awake,Calm 05/24/24 08:03 [email or web address] nausea No 05/24/24 08:03 [email or web address] Vomiting No 05/24/24 08:03 [email or web address] Anesthesia Postop Eval I: Fluid Summary Crystalloid volume administer 40 05/24/24 08:03 [email or web address] (ml) Colloids volume administered ( ml) Blood Product volume administered (ml) Total IV fluid infused 40 05/24/24 08:03 [email or web address] Anesthesia Postop Eval I: Summary Notes Anesthesia Complication No 05/24/24 08:03 [email or web address] Anesthesia Complication Comment: Post-operative progress note Anesthesia: Postop Eval II Evaluation Mental status: Awake Pain Level: 0 nausea: No Vomiting: No
== END 2024-05-24 08:33 | disposition home or self-care (01) ==
LOC: EN 06:31 → AC 06:32
PROVIDERS: PCP Family Medicine; Referring Provider Family Medicine; Visit Provider Surgery
PROC: 0DJD8ZZ Inspection of Lower Intestinal Tract, Via Natural or Artificial Opening Endoscopic (ICD-10-PCS; CPT 45378; principal; 2024-05-24 07:25)
DX: Z12.11 Encounter for screening for malignant neoplasm of colon (principal); K42.1 Umbilical hernia with gangrene; I10 Essential (primary) hypertension; E78.00 Pure hypercholesterolemia, unspecified; Z79.899 Other long term (current) drug therapy
CPT/HCPCS: 45378; A4216; J2405